=== PATIENT | male | born 1970 | race Caucasian/White ===

== ENCOUNTER 2018-10-11 12:19 | Day surgery (SDC) | payer BC ==
[2018-10-11] MEDS: NS 1,000 ML IV (13:15)
[2018-10-11] MEDS ORDERED: LIDOCAINE 2% INJ 100 MG/5 ML SDV (FOR ANES.) As Ordered (14:16)
[2018-10-11] MEDS ORDERED: PROPOFOL 200 MG/20 ML VIAL As Ordered ×5 (14:16→14:20)
== END 2018-10-11 15:03 | disposition home or self-care (01) ==
LOC: M OPP 12:19
DX: Z12.11 Encounter for screening for malignant neoplasm of colon (principal); Z86.010 Personal history of colon polyps; D12.5 Benign neoplasm of sigmoid colon; D12.1 Benign neoplasm of appendix; K64.8 Other hemorrhoids; K57.30 Diverticulosis of large intestine without perforation or abscess without bleeding; R12 Heartburn; K29.70 Gastritis, unspecified, without bleeding
CPT/HCPCS: 45385

== ENCOUNTER → 2019-07-27 | Outpatient (REF) | payer BC ==
[~2019-07-27] MED LIST: ALEV1TAB PO; CALC1TAB26 PO; CENT1TAB PO; DITR5TAB PO; ESTE500T PO; FISH7.5C PO; FLOM0.4C39 PO; GLUC15002 PO; GLUC750T18 PO; MAGN250T9 PO; OXYC1TAB23 PO; TURM500T PO; TYLE1TAB5 PO; VITA-183 PO; potassium 99 PO; red rice yeast PO
[2019-07-27 17:35] LABS: C REACTIVE PROTEIN QUANTITATIV < 0.30 MG/DL (0.00-0.30); RHEUMATOID FACTOR QUANT 16.9 IU/ML (<15.0)
[2019-07-29 15:01] LABS: ANTINUCLEAR ANTIBODIES DIRECT Negative (Negative)
== END ==
LOC: M LAB REF 16:23
PROVIDERS: ATTEND Nurse Practitioner Adult Health
DX: M13.0 Polyarthritis, unspecified (principal)

== ENCOUNTER → 2019-10-02 | Outpatient (REF) | payer BC ==
[2019-10-05 00:06] LABS: Lyme Disease IgG/IgM Antibodie <0.91 ISR (0.00-0.90); Lyme Disease IgM Ab Quantitati <0.80 index (0.00-0.79)
== END ==
LOC: M LAB REF 18:35
PROVIDERS: ATTEND Nurse Practitioner Adult Health
DX: Z11.59 Encounter for screening for other viral diseases (principal)

== ENCOUNTER → 2021-03-11 | Outpatient (CLI) | payer BC ==
--- NOTE | 2021-03-11 10:37 | REP ---
INDICATION: RIGHT ARM NUMBNESS. COMPARISON: None. TECHNIQUE: Plain film study of the cervical spine. FINDINGS: No evidence of fracture or malalignment. Progressed degenerative changes seen at the C5-6 disc level with reduced disc height and anterior osteophytic spurring. No evidence of instability on the flex-ex views. Foraminal narrowing may be significant at the C5-6 level on the left oblique view. Prevertebral soft tissues within normal limits. IMPRESSION: Degenerative changes more progressed at the C5-6 level with findings that suggest narrowing of the left C5-6 neural foramen. Consider further evaluation with MRI as clinically indicated. <Electronically signed by Laurent Levine > 03/11/21 103
== END ==
LOC: M WUC 10:12
PROVIDERS: ATTEND Nurse Practitioner Adult Health
DX: M51.36 Other intervertebral disc degeneration, lumbar region (principal)

== ENCOUNTER → 2021-04-04 | Outpatient (CLI) | payer BC ==
--- NOTE | 2021-04-04 16:03 | REP ---
INDICATION: RT ARM NUMBNESS. COMPARISON: Comparison radiographs March 11, 2021.. TECHNIQUE: Sagittal and axial T1 and T2-weighted scans are acquired in the usual fashion with and without fat saturation. Sequences include spin echo, turbo spin-echo, and STIR imaging sequences. FINDINGS: There is straightening of the normal cervical lordosis. No fracture or collapse is seen. There are degenerative disc changes most pronounced at C4-5 and C5-6. Reactive marrow changes are seen on either side of these disc spaces corresponding with the sclerosis seen radiographically. The cervical cord is normal in course, caliber and signal intensity on T1 and T2 weighted scans. Craniocervical junction is unremarkable. Axial and sagittal images taken at C2-3 show no evidence of disc protrusion, central canal stenosis or foraminal narrowing. At C3-C4, there is right-sided uncovertebral spurring. Mild foraminal narrowing is observed. At C4-C5 there is degenerative disc narrowing. There is a right foraminal and right posterolateral disc protrusion with associated spurring producing significant right sided C4-5 neural foraminal narrowing. Canal size is borderline. At C5-C6 there is a marked degenerative narrowing of the disc. Some diffuse disc bulging and posterior osteophytic ridging is seen effacing the ventral subarachnoid space. There is minimal bilateral uncovertebral spurring left more so than right. Mild central canal stenosis is present at C5-6. Midline AP dimension of the thecal sac is 7.7 mm. At C6-6 7, there is mild central disc bulging. Neural foramina are adequate. No central canal stenosis seen. The C7-T1 level is unremarkable. Incidental note is made of partial fusion of the posterior portion of the disc space at the T 2 T3 level in the upper thoracic spine. IMPRESSION: Degenerative disc disease most pronounced at C4-5 and C5-6. Mild central canal stenosis seen at C5-6. There is a right foraminal disc protrusion with associated spurring and neural foraminal narrowing at C4-5. <Electronically signed by Tay Lundy > 04/04/21 1600
== END ==
LOC: M PLARAD 13:19
PROVIDERS: ATTEND Nurse Practitioner Adult Health
DX: R20.2 Paresthesia of skin (principal)

== ENCOUNTER → 2021-05-28 | Outpatient (CLI) | payer BC ==
[~2021-05-28] MED LIST changes: +ISOVUE-300 61% 50ML VIAL As Ordered ONE; +LIDOCAINE 1% MDV 20ML VIAL As Ordered ONE; +TRIAMCINOLONE ACETONIDE SUSP 40 MG/ML VIAL (J3301) As Ordered ONE
--- NOTE | 2021-05-28 17:04 | REP ---
INDICATION: OSTEOARTHRITIS RT HIP. COMPARISON: None. TECHNIQUE: The procedure was performed under the direct supervision of Dr. Lundy. The benefits and risks including but not limited to pain infection and bleeding and anaphylaxis were explained to the patient and informed consent was obtained. The right femoral neck was localized using fluoroscopic guidance. The skin was prepped and draped in a sterile fashion. 1% lidocaine was used as a local anesthetic. Using fluoroscopic guidance, and last image hold technology, a 22-gauge spinal needle was inserted and advanced to the femoral neck. 0.5 ml of Isovue-300 was injected to verify placement. Six ml of a solution containing 5 ml of 1% Xylocaine and 1 mL of Kenalog 40 mg was injected. The needle was then removed. The patient tolerated the procedure well and there were no immediate complications. Less than 6 seconds of fluoro time was utilized for this procedure. FINDINGS: None IMPRESSION: Fluoro guidance for right hip injection. <Electronically signed by Hiram Finn > 05/28/21 [id number] <Electronically signed by Tay Lundy > 05/28/21 [id number]
== END ==
LOC: M RADPRO 13:02
PROVIDERS: ATTEND Orthopaedic Surgery
DX: M16.11 Unilateral primary osteoarthritis, right hip (principal)
CPT/HCPCS: 20610; 77002; J3301; Q9967

== ENCOUNTER → 2021-06-10 | Outpatient (CLI) | payer BC ==
[~2021-06-10] MED LIST changes: -ISOVUE-300 61% 50ML VIAL As Ordered ONE; -LIDOCAINE 1% MDV 20ML VIAL As Ordered ONE; -TRIAMCINOLONE ACETONIDE SUSP 40 MG/ML VIAL (J3301) As Ordered ONE
== END ==
LOC: M PLAIMG 13:34
PROVIDERS: ATTEND Orthopaedic Surgery
DX: M54.12 Radiculopathy, cervical region (principal)

== ENCOUNTER → 2021-09-15 | Outpatient (REF) | payer BC ==
[2021-09-17 20:07] LABS: Lyme Disease IgG/IgM Antibodie <0.91 ISR (0.00-0.90); Lyme Disease IgM Ab Quantitati <0.80 index (0.00-0.79)
== END ==
LOC: M LAB REF 16:34
PROVIDERS: ATTEND Nurse Practitioner Adult Health
DX: R53.83 Other fatigue (principal)

== ENCOUNTER 2022-06-17 08:17 | Emergency (ER) | payer BC ==
[~2022-06-17] VITALS: Ht 175.3 cm; Wt 89.4 kg
[2022-06-17] MEDS ORDERED: IBUP80TA (08:24)
[2022-06-17] MEDS ORDERED: ALPR0.25 (08:24)
[2022-06-17] MEDS ORDERED: TAMS1CAP17 (08:24)
[2022-06-17] MEDS ORDERED: LISI5TAB11 (08:24)
[2022-06-17] MEDS ORDERED: NS 500 ML IV ONE (08:55)
[2022-06-17 09:21] LABS: BASO # 0.1 10^3/uL (0.0-0.2); BASO % 0.7 % (0.0-1.0); EOS # 0.1 10^3/uL (0.0-0.5); EOS % 1.5 % (0.0-3.0); HEMATOCRIT 45.3 % (42.0-52.0); HEMOGLOBIN 14.9 g/dl (13.5-17.5); LYMPH # 1.3 10^3/uL (1.5-5.0); MEAN CORPUSCULAR HGB CONC 32.9 g/dl (32.0-36.5); MEAN CORPUSCULAR VOLUME 91.1 fl (80.0-96.0); MONO # 0.6 10^3/uL (0.0-0.8); MONO % 9.5 % (2.0-8.0); NEUTROPHILS # 4.6 10^3/uL (1.5-8.5); PLATELET COUNT, AUTOMATED 228 10^3/uL (150-450); RED BLOOD COUNT 4.97 10^6/uL (4.30-6.10); WHITE BLOOD COUNT 6.7 10^3/uL (4.0-10.0)
[2022-06-17 09:41] LABS: BLOOD UREA NITROGEN 22 MG/DL (7-18); CALCIUM LEVEL 9.1 MG/DL (8.5-10.1); CARBON DIOXIDE LEVEL 23 MEQ/L (21-32); CHLORIDE LEVEL 115 MEQ/L (98-107); CREATININE FOR GFR 0.85 MG/DL (0.70-1.30); GLOMERULAR FILTRATION RATE > 60.0 (>56); GLUCOSE, FASTING 127 MG/DL (70-100); POTASSIUM SERUM 4.7 MEQ/L (3.5-5.1); SODIUM LEVEL 143 MEQ/L (136-145)
[2022-06-17] MEDS ORDERED: METH-1165 PO (10:42)
[2022-06-17] MEDS ORDERED: KETO10TAB PO (10:42)
[2022-06-17 10:56] VITALS: BP 167/91
== END 2022-06-17 10:59 | disposition home or self-care (01) ==
LOC: M ED 08:17
DX: S39.012A Strain of muscle, fascia and tendon of lower back, initial encounter (principal); M62.830 Muscle spasm of back; I10 Essential (primary) hypertension; F41.9 Anxiety disorder, unspecified; K21.9 Gastro-esophageal reflux disease without esophagitis; Z87.442 Personal history of urinary calculi; Z91.041 Radiographic dye allergy status; Z79.811 Long term (current) use of aromatase inhibitors; Z79.899 Other long term (current) drug therapy; Y93.9 Activity, unspecified; Y92.9 Unspecified place or not applicable

== ENCOUNTER → 2024-02-15 | Outpatient (CLI) | payer BC ==
[~2024-02-15] MED LIST changes: +ALPR0.25; +FISH10005 PO; -FISH7.5C PO; +IBUP80TA; +KETO10TAB PO; +LISI5TAB11; +METH-1165 PO; +TAMS1CAP17
== END ==
LOC: M RAD 12:03
PROVIDERS: ATTEND Nurse Practitioner Family
DX: N20.0 Calculus of kidney (principal)

== ENCOUNTER 2024-02-17 07:09 | Day surgery (SDC) | payer BC ==
[~2024-02-17] VITALS: Ht 172.7 cm; Wt 88.9 kg
[~2024-02-17 07:09] MED LIST changes: +GLYCOPYRROLATE INJ 0.2 MG/ML 2 ML VIAL As Ordered ONE; +LIDOCAINE 2% 100MG/5ML SDV (FOR ANES.) As Ordered ONE; +propofoL 200 MG/20 ML VIAL As Ordered ONE
[2024-02-17] MEDS: NS 1,000 ML IV ONE (07:26)
[2024-02-17 08:57] VITALS: TEMP 97.5
[2024-02-17 09:15] VITALS: BP 148/77; O2SAT 95
== END 2024-02-17 09:28 | disposition home or self-care (01) ==
LOC: M OPP 07:09
PROVIDERS: ATTEND Internal Medicine Gastroenterology
DX: Z12.11 Encounter for screening for malignant neoplasm of colon (principal); Z86.010 Personal history of colon polyps; Z80.0 Family history of malignant neoplasm of digestive organs; D12.2 Benign neoplasm of ascending colon; D12.5 Benign neoplasm of sigmoid colon; K64.8 Other hemorrhoids; K57.30 Diverticulosis of large intestine without perforation or abscess without bleeding; R10.13 Epigastric pain; G47.30 Sleep apnea, unspecified; Z91.041 Radiographic dye allergy status; Z87.891 Personal history of nicotine dependence

== ENCOUNTER → 2024-03-30 | Outpatient (CLI) | payer BC ==
[~2024-03-30] MED LIST changes: -GLYCOPYRROLATE INJ 0.2 MG/ML 2 ML VIAL As Ordered ONE; -LIDOCAINE 2% 100MG/5ML SDV (FOR ANES.) As Ordered ONE; -propofoL 200 MG/20 ML VIAL As Ordered ONE
== END ==
LOC: M ADAMS 13:34
PROVIDERS: ATTEND Nurse Practitioner Adult Health
DX: M25.551 Pain in right hip (principal); M16.11 Unilateral primary osteoarthritis, right hip

== ENCOUNTER → 2024-09-18 | Outpatient (REF) | payer BC ==
[2024-09-18 13:29] LABS: FERRITIN 55.7 NG/ML (10.5-307.3); PERCENT SATURATION 12.3 % (19.7-50.0)
== END ==
LOC: M LAB REF 12:36
PROVIDERS: ATTEND Internal Medicine
DX: Z01.818 Encounter for other preprocedural examination (principal)

== ENCOUNTER → 2025-01-04 | Outpatient (REF) | payer BC ==
[2025-01-04 18:19] LABS: PERCENT SATURATION 23.6 % (19.7-50.0)
[2025-01-04 18:22] LABS: FERRITIN 39.9 NG/ML (10.5-307.3)
[2025-01-04 18:24] LABS: HEMATOCRIT 42.8 % (42.0-52.0)
== END ==
LOC: M LAB REF 16:33
PROVIDERS: ATTEND Nurse Practitioner Adult Health
DX: E61.1 Iron deficiency (principal)